=== PATIENT | female | born 2000 | race Caucasian/White ===

== ENCOUNTER 2024-10-17 14:39 | Emergency (ER) | payer OTHER, SELFPAY ==
[2024-10-17 15:31] VITALS: BP 134/73; PULSE 65; RESP 18; TEMP 36.4; O2SAT 100; BMI 21.6
--- NOTE | 2024-10-17 17:04 | ED.SKABFB ---
HPI - Skin/Abscess/Foreign Bdy General Chief complaint: Skin/Abscess/Foreign Body Stated complaint: Swelling On Lips Time Seen by Provider: 10/17/24 17:13 Source: patient and RN notes reviewed Mode of arrival: ambulatory Limitations: no limitations History of Present Illness ED Provider: Lisa Meraz PA-C HPI narrative: This is a 20-ghis-tpx-female who presents to the ER with complaints of dry, cracking, itchy lips x 2 weeks. She was seen at an urgent care where she was given a rx for prednisonoe 50mg x 5 days and mupriocin. She states 2 hours after taking the prednisone her symptoms improved significantly. After the prednisone was completed, her symptoms immediately returned. She denies any new lip products, lip fillers, foods, lotions, detergents, foods. Denies any CP or SOB. She denies any fevers, chills, congestion. No sick contacts. No other complaints or concerns. MD complaint: rash Onset (ago): day(s) Severity: mild Quality: constant and pruritic Relieving factors: medication Exacerbating factors: none Context: none Associated symptoms: denies other symptoms Treatments prior to arrival: none Related Data Previous Rx's ?Medication ?Instructions ?Recorded cephalexin 250 mg capsule 250 mg PO QID 5 days #20 caps 10/17/24 prednisone 10 mg tablet See Rx Instructions .Route 10/17/24 .COMPLEX #32 tabs Allergies Allergy/AdvReac Type Severity Reaction Status Date / Time No Known Allergies Allergy Verified 10/17/24 15:33 Review of Systems Review of Systems: Yes all other systems are reviewed and are negative PMFSH Social History Social History Advance Directives: No Advance Directives Information Provided: No Physical Exam Vital Signs: Vital Signs: Last Vital Signs Temp 97.6 F 10/17/24 17:35 Pulse 65 10/17/24 17:35 Resp 18 10/17/24 17:35 BP 134/73 10/17/24 17:35 Pulse Ox 100 10/17/24 17:35 O2 Del Method Room Air 10/17/24 17:35 BMI result Body Mass Index 21.6 Const: Other: General: Awake, alert, and oriented X3. No acute distress. HEENT: Upper and lower lips are mildly edematous, dry, with some honey crusting noted throughuot lips. Pt occasionally itching at lips during exam. OP is widely patent, no edema noted. Normal inspection CVS: Normal heart rate and rhythm. Pulses normal. Respiratory: No respiratory distress, Lungs CTAB. No stridor or wheezing Skin: Warm, dry, no rashes noted to exposed skin. Normal skin color. Normal skin turgor. Extremities: Normal to inspection Neuro: Oriented X 3. No motor deficit. No sensory deficit. Course Course Course Narrative: This is an RME: Additional HPI, ROS, PE not included below will be deferred to primary provider. RME assessment and note performed by: Lisa Meraz PA-C Medical Decision Making Medical Decision Making MDM Narrative: 24 y/o F who presents to the ED with BL lip swelling x 2 weeks. Seen by UC and was rx'd prednisone which helped significantly. On examination, pt has uniformly swollen lips with some honey crusting noted. DDX including contact dermatitis vs impetigo. Discussed that given sxs improved with prednisone, this could be allergic in nature. She has no SOB or evidence of anaphylaxis. Discussed the importance of disposing all lip products as if this is bacterial, she could be re-exposing herself. Discussed to d/c muprocin. Will triaal keflex to tx for bacterial in nature and failure of topical abx. Given return precautions. Stable for d/c. Differential Diagnosis Differential Diagnoses: The differential diagnosis associated with the presentation includes contact dermatitis, impetigo, cellulitis Discharge Plan Discharge Clinical Impression: Lip swelling Patient Disposition: Home, Self-Care Instructions: Impetigo (ED) Additional Instructions: You were seen in the emergency department due to ongoing dry, swollen lips. Please throw away all your current lip products and wash all will her bottles and coffee mugs. Please take prescribed medication as directed. Take prescribed antibiotic as directed. If any new or worsening symptoms occur including but not limited to difficulty swallowing, breathing, please return for re-evaluation. I am putting you on a tapering schedule for prednisone. It is as follows: Take prednisone 40 mg x 5 days, prednisone 30 mg x 2 days, prednisone 20 mg x 2 days, prednisone 10 mg x 2 days. Prescriptions: New cephalexin 250 mg capsule 250 mg PO QID 5 Days Qty: 20 0RF prednisone 10 mg tablet See Rx Instructions .ROUTE .COMPLEX Qty: 32 0RF Rx Instructions: 10 mg orally Take 4 tablets x5 days Take 3 tablets x2 days Take 2 tablets x2 days Take 1 tablet x2 days Stand Alone Forms: Work/School Release Interventions: ED Discharge Assessment Last Done: 10/17/24 17:35 Discharge Date/Time: 10/17/24 17:35 Print Language: Estonian
--- OUTSIDE RECORDS SUMMARY | 2024-10-17 17:20 | XMS_ITS | Clinical Summary ---
Author Organization [facility] Address [address] [place] [id number] Phone Care Team Providers Care Anime Designer Name Role Phone Semyour Kaur CHOW Primary Care Provider [phone] Allergies No known active allergies Medications SUMAtriptan 50 MG tabletIndication s:Chronic tension-type headache, not intractable TAKE 1 TAB ONCE NEEDED FOR MIGRAINE (MAY REPEAT IN 2 HOURS IF PERSISTS MAX 2 TABS PER DAY) 9 tablet 3 3 Active Active Problems Problem Noted Date Diagnosed Date Diarrhea 04/19/2024 Assessment & Plan (04/19/2024 4:20 PM EDT): Persistent diarrhea is likely from an initial viral illness and now is related to a disrupted gut danny. Recommended a probiotic to help reset this gut function. No blood in diarrhea or other signs of a more significant infection on exam. Will obtain lab work to check for signs of inflammation or other gut issues. Gastroesophageal reflux disease 04/19/2024 Assessment & Plan (04/19/2024 4:21 PM EDT): Some concern for GERD on history. Will treat with famotidine BID for a week and then as needed beyond that. Ganglion cyst 02/05/2023 Assessment & Plan (02/05/2023 5:49 PM EDT): History and exam consistent with a ganglion cyst. No functional limitations due to this cyst. Patient able to use her hand. No numbness or tingling noted to suggest a carpel tunnel inflammation. Discussed watching this cyst going forward or referring to a hand surgeon. Patient electing to watch for the time being. Chronic tension-type headache, not intractable 0 05/27/2022 Assessment & Plan (09/06/2023 11:03 AM EST): Overall better, much less often Uses sumatriptan prn Assessment & Plan (05/27/2022 2:27 PM EDT): Suggest keeping headache diary over the next month Reviewed possible triggers Will also trial sumatriptan to use on prn basis F/u in 1 m If sx persist, would consider daily preventative medication Allergic rhinitis 07/03/2021 Assessment & Plan (07/03/2021 3:24 PM EDT): Recommended use of loratadine or cetirizine for 7 days to help with possible allergy headache trigger or lymph node trigger. Anxiety disorder 03/06/2021 Assessment & Plan (09/06/2023 11:02 AM EST): Manages well Sees therapist every other week Other acne 01/20/2016 Overview (02/25/2018): Acne (706.1) Onset: 01/20/2016 Added by: Deidre Perez Resolved Problems Problem Noted Date Diagnosed Date Resolved Date Otitis media 01/19/2023 09/06/2023 Assessment & Plan (01/19/2023 4:57 PM EDT): Exam consistent with left AOM Willl treat with amoxicillin x 10 days If no improvement in 2-3 days, call office for re-evaluation Otitis Media (Ear Infection) Plan Complete the entire course of oral antibiotics as needed. Use Ibuprofen or acetaminophen [Tylenol] as needed for pain. May use warm compress to affected ear as needed. Keep well hydrated. Call and recheck in office if not improving. Recheck in 2 weeks if 2 years of age or younger. Oral contraceptive pill surveillance 05/27/2022 09/06/2023 Assessment & Plan (05/27/2022 2:28 PM EDT): Plan to resume OCP Acute non-recurrent frontal sinusitis 01/12/2022 05/27/2022 Assessment & Plan (01/12/2022 2:22 PM EDT): Exam and history consistent with acute sinusitis. Will treat with cefprosil. Also recommended use of cetirizine while on the antibiotic. Human papilloma virus (HPV) vaccination declined 03/06/2021 09/06/2023 Strep pharyngitis 03/18/2018 02/21/2019 Anemia 01/19/2017 02/21/2019 Overview (02/25/2018): Anemia, unspecified (285.9) Onset: 01/19/2017 Added by: Nayeli Clemente Scoliosis (and kyphoscoliosis), idiopathic 01/19/2017 03/05/2020 Overview (12/25/2022): Scoliosis (737.30) Onset: 01/19/2017 Added by: Nayeli Clemente Diagnosis load November 2022 Absence of menstruation 01/15/201501/29 Overview (02/25/2018): Primary amenorrhea (626.0) Onset: 01/15/2015 Added by: Vicky Waite Encounters Date Type Department Care Team Description 10/17/2024 2:39 PM EST - Present Hospital Encounter [facility] - Patient Ping from Last 3 Months Immunizations Immunization Administration Dates Next Due COVID-19 Moderna, monovalent , 12+ years 01/28/2021,12/27/2020 DTaP 5 05/29/2005, 2,04/12/2001,01/27,2000 HPV Vaccine 9 Valent 04/18/2024,10/15/2023,09/06 Hep A, ped/adol 01/19/2017,01/20/2016 Hep B, ped/adol 04/12/2001,2000,2000 Hib (PRP-T) 02/28/2002, 1,01/27/2001,11/25 IPV 05/29/2005, 2,01/27/2001,11/25 Influenza, injectable, quadr ivalent, preservative free 09/06/2023,05/27/2022,07/01/2018 Influenza, injectable, triva lent, preservative free 09/14/2011 MMR 05/29/2005,09/27/2001 Meningococcal Conj (Menactra) MCV4P 01/19/2017,0 11/29/2012 PPD Test 04/25/2021,07/13/2018 Pneumococcal Conjugate 13-Valent 04/12/2001,12/30,2000 Tdap 09/06/2023,11/29/2012 Varicella 11/29/2012,09/27/2001 Family History Medical History Relation Name Comments No Known Problems Brother Jarad No Known Problems Father Ashwin No Known Problems Half-Brother Terrence No Known Problems Mother Radha Relation Name Status Comments Brother Jarad Alive Father Ashwin Alive Half-Brother Terrence Alive Mother Radha Alive Social History Tobacco Use Types Packs/Day Years Used Date Smoking Tobacco: Never Smokeless Tobacco: Never Comments:Never Smoker Alcohol Use Standard Drinks/Week Comments Never 0 (1 standard drink = 0.6 oz pur e alcohol) Hunger/Food Answer Date Recorded In the last 12 months, did y ou or your family ever eat less than you felt you should because there wasn't enough money for food? No 09/05/2023 Stable Housing Answer Date Recorded Are you worried that in the next 2 months you may not have stable housing? No 09/05/2023 Transportation Concerns Answer Date Rec orded In the last 12 months, have you or your family ever had to go without healthcare because you didn't have a way to get there? No 09/05/2023 Hazards in Home Answer Date Recorded Think about the place you li ve. Do you have problems with any of the following? Pests (mice or roaches), mold, no/not working smoke detectors, water leaks, no window guards. No 2023 Financing Utilities Answer Date Recorde d In the last 12 months, has t he electric, gas, oil, or water company threatened to shut off your services in your home? No 09/05/2023 Safety at Home Answer Date Recorded Are you or your family worried about feeling saf e in your home? No 09/05/2023 Outside Support Answer Date Recorded Do you feel that you need mo re support from other people or programs to help you care for yourself or your family? No 09/05/2023 Understanding Health Concerns Answer Da te Recorded Do you need help understandi ng your or your child's healthcare needs (diagnosis, medications, plan, etc.)? No 09/05/2023 Financing Health Concerns Answer Date R ecorded In the last 12 months, was t here a time when your child needed to see a doctor or get medications or supplies but could not because of cost? No 09/05/2023 Missing School or Work Answer Date Daniel rded Did you or your child miss s chool or work because of a health problem that could have been avoided? No 09/05/2023 Comments No Sex and Gender Information Value Date Recorded Sex Assigned at Not on file Legal Sex Female 6:40 PM EDT Gender Identity Female 07/05/2024 1:21 PM EST Sexual Orientation Not on file Last Filed Vital Signs Vital Sign Reading Time Taken Comments Blood Pressure 110/78 09/06/2023 10:39 AM EST Pulse 97 09/06/2023 10:39 AM EST Temperature 37 ??C (98.6 ??F) 04/19/2024 11: 28 AM EDT Respiratory Rate - - Oxygen Saturation - - Inhaled Oxygen Concentration - - Weight 58.4 kg (128 lb 11.2 oz) 024 11:28 AM EDT Height 165.8 cm (5' 5.26 ) 09/06/2023 1 0:39 AM EST Body Mass Index 21.25 09/06/2023 10:39 AM EST Plan of Treatment Health Maintenance Due Date Last Done Comments Influenza Vaccines (#1) 2024 09/06/19 24, 05/27/2022, 07/01/2018, Additional history exists COVID-19 Vaccine ( season) 2024 09/01/2021, 01/28/2021, 12/27/2020 Chlamydia and Gonorrhea Screening 08/30/2024 09/06/2023, 05/27/2022, 03/06/2021, Additional history exists DTaP,Tdap,and Td Vaccines (8 - Td or Tdap) 09/06/2033 09/06/2023, 11/29/2012, 05/29/2005, Additional history exists Hepatitis B Vaccines Completed 04/12/2001, 2000, 2000 Pneumococcal Vaccine Aged Out 04/12/2001, 01/27/2001, 2000 No longer eligible based on patient's age to complete this topic HIB Vaccines Completed 02/28/2002, 03/30, 01/27/2001, Additional history exists IPV Vaccines Completed 05/29/2005, 09/2001, 01/27/2001, Additional history exists MMR Vaccines Completed 05/29/2005, 09/27/2001 Varicella Vaccines Completed 11/29/2012, 09/27/2001 Hepatitis A Vaccines Completed 01/19/2017, 01/20/20 16 Meningococcal Vaccine Completed 01/19/2017, 013 HPV Vaccines Completed 04/18/2024, 09/30, 09/06/2023 Men B Vaccine Aged Out No longer elig ible based on patient's age to complete this topic Procedures * The patient is currently admitted. The information in this section might not be complete until the patient is discharged.Due to [place] Ready law, this organization might not be sharing sensitive test results. Procedure Name Priority Date/Time Associated Diagnosis Comments CHLAMYDIA GC AMP PROBE Routine 09/06/2023 10:58 AM EST Encounter for screening examination for sexually transmitted disease from Last 3 Months or Most Recently Relevant to Health Maintenance Results * Due to [place] law, this organization might not be sharing sensitive test results. * Chlamydia and Gonorrhoea, Amplified (Vagina) (09/06/2023 10:58 AM EST) Chlamydia Trachomatis, Amplified NEGATIVE (NEG) [facility] Comment: No Chlamydia Trachomatis RNA detected in this patient's sample ? (REFERENCE RANGE/NORMAL VALUE: NOT DETECTED) ? Note: This test uses communications marketing intern- mediated amplification method to detect rRNA from C. Trachomatis N.GONORRHOEAE AMP PROBE NEGATIVE (NEG) [facility] Comment: No Neisseria Gonorrhoeae RNA detected in this patient's sample ? (REFERENCE RANGE/NORMAL VALUE: NOT DETECTED) ? NOTE: This test uses communications marketing intern-mediated amplification method to detect rRNA from N.Gonorrhoeae. A negative result does not preclude infection. In the case of a negative urine result, testing of an endocervical(female) or urethral (male) specimen is recommended if there is high clinical suspicion of infection. Due to very high sensitivity of Nucleic Acid Amplification Test, false positive results may occur. Therefore, specimen handling is extremely important. In patients in whom the disease is unlikely, additional sample for testing should be considered after an initial positive result. The performance characteristics of this test have not been evaluated in children. The Aptima Combo2 assay is not intended for the evaluation of suspected sexual abuse or for other medico-legal indications. The ordering provider should assess if the patient had consensual sex without risk of sexual abuse. Consult the [facility] if needed. Contact phone number . Therapeutic failure or success cannot be determined with the Aptima Combo2 assay since nucleic acid may persist following appropriate antimicrobial therapy. The Centers for Disease Control and Prevention (CDC) recommends confirmatory retesting using culture or a different nucleic acid amplification test when positive results occur, if indicated. CHLAM/GC AMP PROBE SPEC TYPE VAGINAL SPECIMEN [facility] Comment: Testing performed or reported by [facility], a Service of [facility], [address] [place] [address] [place] [address] Gilmar Carrasquillo MD, Ship Painter Helper [facility]# [id number] Swab (Vagina) 09/06/2023 10: 58 AM EST 09/06/2023 7:38 PM EST Flores Pereira NP LAB MICROBIOLOGY - GENERAL ORDER MICKI Final Result [facility] from Last 3 Months or Most Recently Relevant to Health Maintenance Insurance [facility] [facility] [place] [id number] Care Teams Anime Designer Relationship Specialty Start Date End Date Kaur Auhja NP [facility] [facility] [place] [address] PCP - General Pediatrics 02/16/23
--- OUTSIDE RECORDS SUMMARY | 2024-10-17 17:20 | XMS_ITS | Encounter Summary ---
Author Organization [facility] Address [address] [place] [phone] Phone Care Team Providers Care Manager Combination Name Role Phone Kaur Ahuja GLASS SANDER Primary Care Provider [phone] Encounter Details Date Type Department Care Team (Late st Contact Info) Description 09/10/2011 Conversion Encounter [facility] [address] [place] [address] [place] [address] Social History Tobacco Use Types Packs/Day Years Used Date Smoking Tobacco: Never Assessed Comments Unknown Sex and Gender Information Value Date Recorded Sex Assigned at Not on file Legal Sex Female 6:40 PM EDT Gender Identity Female 07/05/2024 1:21 PM EST Sexual Orientation Not on file documented as of this encounter Plan of Treatment Not on file documented as of this encounter Visit Diagnoses Not on filedocumented in this encounter Care Teams Manager Combination Relationship Specialty Start Date End Date Kaur Ahuja NP [address] [place] [address] [place] [address] PCP - General Pediatrics 02/16/23 documented as of this encounter
--- OUTSIDE RECORDS SUMMARY | 2024-10-17 17:20 | XMS_ITS | Encounter Summary ---
Author Organization [facility] Address [address] [place] [phone] Phone Care Team Providers Care Back Tufter Name Role Phone Kaur Ahuja GERALDO Primary Care Provider [phone] Reason for Visit * Reason Comments Med Refill Encounter Details Date Type Department Care Team (Late st Contact Info) Description 05/04/2021 Refill [facility] [place] [address] Deidre Perez MD [address] [place] [id number] Well adult exam Social History Tobacco Use Types Packs/Day Years [...] there wasn't enough money for food? No 03/06/2021 Stable Housing Answer Date Recorded Are you worried that in the next 2 months you may not have stable housing? No 03/06/2021 Transportation Concerns Answer Date Rec orded In the last 12 months, have you or your family ever had to go without healthcare because you didn't have a way to get there? No 03/06/2021 Hazards in Home Answer Date Recorded Think about the place you li ve. Do you have problems with any of the following? Pests (mice or roaches), mold, no/not working smoke detectors, water leaks, no window guards. No 2020 Financing Utilities Answer Date Recorde d In the last 12 months, has t he electric, gas, oil, or water company threatened to shut off your services in your home? No 03/06/2021 Safety at Home Answer Date Recorded Are you or your family worried about feeling saf e in your home? No 03/06/2021 Outside Support Answer Date Recorded Do you feel that you need mo re support from other people or programs to help you care for yourself or your family? No 03/06/2021 Understanding Health Concerns Answer Da te Recorded Do you need help understandi ng your or your child's healthcare needs (diagnosis, medications, plan, etc.)? No 03/06/2021 Financing Health Concerns Answer Date R ecorded In the last 12 months, was t here a time when your child needed to see a doctor or get medications or supplies but could not because of cost? No 03/06/2021 Missing School or Work Answer Date Daniel rded Did you or your child miss s chool or work because of a health problem that could have been avoided? No 03/06/2021 Comments No Sex and Gender Information Value Date Recorded Sex Assigned at Not on file Legal Sex Female 6:40 PM EDT Gender Identity Female 07/05/2024 1:21 PM EST Sexual Orientation Not on file documented as of this encounter Plan of Treatment Not on file documented as of this encounter Visit Diagnoses Diagnosis Well adult exam Routine general medical examination at a health care facility documented in this encounter Care Teams Back Tufter Relationship Specialty Start Date End Date Kaur Ahuja NP [address] [facility] [place] [address] PCP - General Pediatrics 02/16/23 documented as of this encounter
[2024-10-17 17:35] VITALS: BP 134/73; PULSE 65; RESP 18; TEMP 36.4; O2SAT 100
== END 2024-10-17 17:35 | disposition home or self-care (01) ==
PROVIDERS: Emergency Provider Emergency Medicine
DX: K13.0 Diseases of lips (principal)
CPT/HCPCS: 99282; 99283